=== PATIENT | male | born 1955 | race Caucasian/White ===

== ENCOUNTER 2016-12-14 09:06 | Emergency (ER) | payer SELFPAY ==
[~2016-12-14] VITALS: Ht 177.8 cm; Wt 112.0 kg
[2016-12-14 09:09] VITALS: BP 157/93; PULSE 87; RESP 16; TEMP 97.8; O2SAT 97
--- NOTE | 2016-12-14 09:35 | PD ---
HPI Chief Complaint: Pain: Acute or Chronic Time Seen by Provider: 09:19 Travel History International Travel<30 days: No Contact w/Intl Traveler<30days: No Traveled to known affect area: No History of Present Illness HPI The patient is a 60-year-old male who presents to the emergency department for back pain and bilateral lower extremity pain. The patient is a 7 year history of low back pain, states he exacerbated his back pain while he was in assisted. The patient states he fell, had x-rays of the back in the pelvis but there is no acute fractures. The back pain is located along the lower aspect the back, mostly on the right side, worse with standing and movement. He denies any radiation of the pain into the lower extremities and denies any urinary or fecal incontinence. The patient states he was evaluated at a clinic in [place] and was referred for outpatient CT and MRI, however, was unable to have the diagnostic tests secondary to not having insurance. He denies any acute changes in his back pain, but does note that has been progressing over the last several years. He also has a history of "bad veins "in the lower legs with previous laser therapy. The pain is worse with prolonged standing and occasional activity, he denies any known history of claudication and does not take any blood thinners. The pain is located in the posterior aspect of the legs, noted with mild swelling with prolonged standing and is alleviated at rest. Symptoms are moderate without any acute exacerbating factors. PFSH Past Medical History Narrative Medical Chronic back pain, anxiety, depression, hypertension Past Surgical History Narrative Surgical Laser vein therapy Social History Tobacco Use: Yes Allergies-Medications (Allergen,Severity, Reaction): Coded Allergies: HMG-CoA Reductase Inhibitors (Verified Allergy, Intermediate, Joint Pain, 12/14/16) Reported Meds & Prescriptions Reported Meds & Active Scripts Active Reported Sertraline (Sertraline HCl) 50 Mg Tab 150 Mg PO DAILY Hydroxyzine HCl 25 Mg Tab 25 Mg PO TID PRN Lisinopril 2.5 Mg Tab 2.5 Mg PO DAILY Review of Systems Except as stated in HPI: all other systems reviewed are Neg HENT: No: Headaches Cardiovascular: No: Chest Pain or Discomfort Respiratory: No: Shortness of Breath Gastrointestinal: No: Nausea, Vomiting, Abdominal Pain Genitourinary: No: Urgency, Frequency, Dysuria, Hematuria, Incontinence Musculoskeletal: Positive: Edema, Pain Neurologic: No: Dizziness, Paresthesia, Sensory Disturbance Physical Exam Narrative GENERAL: Awake, alert, nontoxic-appearing 60-year-old male who appears his stated age and is in no acute respiratory distress. SKIN: Focused skin assessment warm/dry. HEAD: Atraumatic. Normocephalic. EYES: Pupils equal and round. No scleral icterus. No injection or drainage. ENT: No nasal bleeding or discharge. Mucous membranes pink and moist. NECK: Trachea midline. No JVD. CARDIOVASCULAR: Regular rate and rhythm. No murmur appreciated. RESPIRATORY: No accessory muscle use. Clear to auscultation. Breath sounds equal bilaterally. GASTROINTESTINAL: Abdomen soft, non-tender, nondistended. Back: No tenderness of lumbar or thoracic vertebrae. No tenderness of the sacroiliac. Mild discomfort with rotation and extension of the back. MUSCULOSKELETAL: No obvious deformities. No clubbing. No cyanosis. No edema. Calves are soft bilaterally. Some superficial varicosities noted. Positive dorsalis pedal pulse and posterior tibialis pulses via Doppler. No edema noted. Full range of motion. NEUROLOGICAL: Awake and alert. No obvious cranial nerve deficits. Motor grossly within normal limits. Normal speech. Sensation is intact to lower cavities bilaterally to soft touch. PSYCHIATRIC: Appropriate mood and affect; insight and judgment normal. Data Data Last Documented VS Vital Signs Date Time Temp Pulse Resp B/P Pulse Ox O2 Delivery O2 Flow Rate FiO2 12/14/16 09:09 97.8 87 16 157/93 97 Orders Spine, Lumbar - Ltd (Ap & Lat) (12/14/16 ) Ibuprofen (Motrin) (12/14/16 09:45) [facility] Medical Decision Making Medical Screen Exam Complete: Yes Emergency Medical Condition: Yes Medical Record Reviewed: Yes Interpretation(s) Last Impressions Lumbar Spine X-Ray 12/14/16 0000 Signed Impressions: Service Date/Time: Wednesday, December 14, 2016 09:54 - CONCLUSION: Mild degenerative changes. Benito Stovall MD FACR Differential Diagnosis Differential diagnosis includes superficial varicosities, claudication, PVD, PAD , chronic back pain, herniated disc, deconditioning, fracture, sprain, strain. Narrative Course The patient's neurovascular examination is unremarkable. I do not believe the patient's pain is secondary to claudication, he has bilateral posterior tibialis and dorsalis pedal pulses via Doppler. There is no significant edema noted, he does have some superficial varicosities. X-ray lumbar spine was ordered and the patient was administered ibuprofen 400 mg orally. X-ray reveals degenerative changes, no acute fracture. Patient has no red flags such as bilateral radiculopathy, history of cancer, or urinary incontinence. The patient will be referred to the outpatient facility clinic. He will be prescribed ibuprofen and Ultram for pain. He is advised to return if symptoms worsen or progress. Diagnosis Primary Impression: Back pain Qualified Code: M54.5 - Chronic right-sided low back pain without sciatica Additional Impression: Bilateral leg pain Referrals: [facility] as needed Patient Instructions: General Instructions Additional Instructions: Medications as directed. Follow-up with his health, you may benefit from outpatient physical therapy. Return if symptoms worsen or progress. Med/Other Pt SpecificInfo: Prescription(s) given Scripts Tramadol 50 Mg Tab50 Mg PO Q6H PRN (PAIN) #12 TAB Ref 0 Prov:Zechariah Swenosn MD 12/14/16 Ibuprofen 400 Mg Bra278 Mg PO Q6H PRN (PAIN SCALE 1 TO 10) #20 TAB Ref 0 Prov:Zechariah Swenson MD 12/14/16 Disposition: 01 DISCHARGE HOME Condition: Stable Zechariah Swenson MD Dec 14, 2016 09:35
[2016-12-14] MEDS ORDERED: SERT-132 PO (09:36)
[2016-12-14] MEDS ORDERED: HYDR-3133 PO (09:36)
[2016-12-14] MEDS ORDERED: LISI2.5T3 PO (09:36)
[2016-12-14] MEDS ORDERED: IBUPROFEN 400 MG TAB PO ONE (09:45)
--- NOTE | 2016-12-14 10:04 | RADRPT ---
EXAM DATE/TIME: 12/14/2016 09:54 [facility] COMPARISON: No previous studies available for comparison. INDICATIONS : Lower back pain after helping move boxes. MEDICAL HISTORY : Hypertension. SURGICAL HISTORY : Hernia repair. ENCOUNTER: Initial ACUITY: 2 weeks PAIN SCORE: 8/10 LOCATION: Lower back radiating upwards. FINDINGS: There are degenerative changes in the lumbar spine probably anterior osteophytes. There is minimal l oss of disc space height at L5-S1. Mild degenerative changes are present facets. CONCLUSION: Mild degenerative changes. Benito Stovall MD FACR on December 14, 2016 at 10:01 Board Certified Radiologist. This report was verified electronically.
[2016-12-14] MEDS ORDERED: IBUP400T20 PO (10:55)
[2016-12-14] MEDS ORDERED: TRAM50TA PO (10:55)
== END 2016-12-14 11:24 | disposition home or self-care (01) ==
LOC: NEPD 09:06
DX: M54.5 Low back pain (principal); M79.604 Pain in right leg; M79.605 Pain in left leg; I10 Essential (primary) hypertension; Z72.0 Tobacco use
CPT/HCPCS: 72100; 99283

== ENCOUNTER 2016-12-18 16:11 | Emergency (ER) | payer SELFPAY ==
[~2016-12-18] VITALS: Ht 177.8 cm; Wt 110.0 kg
[~2016-12-18 16:11] MED LIST: HYDR-3133 PO; IBUP400T20 PO; LISI2.5T3 PO; SERT-132 PO; TRAM50TA PO
[2016-12-18 16:16] VITALS: BP 162/82; PULSE 90; RESP 15; TEMP 98.2; O2SAT 97
--- NOTE | 2016-12-18 17:57 | PD ---
HPI Chief Complaint: Psychiatric Symptoms Time Seen by Provider: 17:55 Travel History International Travel<30 days: No Contact w/Intl Traveler<30days: No Traveled to known affect area: No History of Present Illness HPI This report is in ERROR Please disregard this report and all prior copies ! This report is in ERROR Please disregard this report and all prior copies ! This report is in ERROR Please disregard this report and all prior copies ! PFSH Past Medical History Anxiety: Yes Diminished Hearing: No Hypertension: Yes Musculoskeletal: Yes (fall with injury 2012, bilat hip pain, chronic lower back pain. ) Past Surgical History Abdominal Surgery: Yes ( double hernia repair as ) Eye Surgery: Yes (cataract and lens replacement 2011) Social History Alcohol Use: Yes (rarely) Tobacco Use: Yes Allergies-Medications (Allergen,Severity, Reaction): Coded Allergies: HMG-CoA Reductase Inhibitors (Verified Allergy, Intermediate, Joint Pain, 12/14/16) Reported Meds & Prescriptions Reported Meds & Active Scripts Active Tramadol (Tramadol HCl) 50 Mg Tab 50 Mg PO Q6H PRN Ibuprofen 400 Mg Tab 400 Mg PO Q6H PRN Reported Sertraline (Sertraline HCl) 50 Mg Tab 150 Mg PO DAILY Hydroxyzine HCl 25 Mg Tab 25 Mg PO TID PRN Lisinopril 2.5 Mg Tab 2.5 Mg PO DAILY Review of Systems Except as stated in HPI: all other systems reviewed are Neg Physical Exam Narrative This report is in ERROR Please disregard this report and all prior copies ! This report is in ERROR Please disregard this report and all prior copies ! This report is in ERROR Please disregard this report and all prior copies ! Data Data Last Documented VS Vital Signs Date Time Temp Pulse Resp B/P Pulse Ox O2 Delivery O2 Flow Rate FiO2 12/18/16 16:16 98.2 90 15 162/82 97 VS reviewed MDM Medical Decision Making Medical Screen Exam Complete: Yes Emergency Medical Condition: Yes Differential Diagnosis This report is in ERROR Please disregard this report and all prior copies ! This report is in ERROR Please disregard this report and all prior copies ! This report is in ERROR Please disregard this report and all prior copies ! Narrative Course This report is in ERROR Please disregard this report and all prior copies ! This report is in ERROR Please disregard this report and all prior copies ! This report is in ERROR Please disregard this report and all prior copies ! Diagnosis Primary Impression: Encounter for medical screening examination Referrals: [facility] 1 day Disposition: 01 DISCHARGE HOME Condition: Stable Campbell Armstrong MD Dec 18, 2016 17:57
--- NOTE | 2016-12-18 18:09 | PD ---
HPI Chief Complaint: Psychiatric Symptoms Time Seen by Provider: 17:55 Travel History International Travel<30 days: No Contact w/Intl Traveler<30days: No Traveled to known affect area: No History of Present Illness HPI The patient's 61 years old. He arrives her voluntary with a few complaints. He reports various grievances including difficulty finding a hard time is a registered sex offender, difficulty finding work, a pending eviction from his house, difficulty getting follow-up medical care, multiple negatively predisposed acquaintances and other challenges for him personally. He denies suicidal and homicidal ideation. He goes on to explain that he is somewhat unsatisfied with group therapy arranged by [facility] facility would like an individual therapist. He reiterates no intention of harm to self or others. He denies drug or alcohol abuse. He offers no specific medical complaint. History Social History Alcohol Use: Yes (rarely) Tobacco Use: Yes Allergies-Medications (Allergen,Severity, Reaction): Coded Allergies: HMG-CoA Reductase Inhibitors (Verified Allergy, Intermediate, Joint Pain, 12/14/16) Reported Meds & Prescriptions Reported Meds & Active Scripts Active Tramadol (Tramadol HCl) 50 Mg Tab 50 Mg PO Q6H PRN Ibuprofen 400 Mg Tab 400 Mg PO Q6H PRN Reported Sertraline (Sertraline HCl) 50 Mg Tab 150 Mg PO DAILY Hydroxyzine HCl 25 Mg Tab 25 Mg PO TID PRN Lisinopril 2.5 Mg Tab 2.5 Mg PO DAILY Review of Systems Except as stated in HPI: all other systems reviewed are Neg Physical Exam Narrative GENERAL: 60 yo M, WNWD, NAD SKIN: Warm and dry. HEAD: Atraumatic. Normocephalic. EYES: Pupils equal and round. No scleral icterus. No injection or drainage. ENT: No nasal bleeding or discharge. Mucous membranes pink and moist. NECK: Trachea midline. No JVD. CARDIOVASCULAR: Regular rate and rhythm. RESPIRATORY: No accessory muscle use. Clear to auscultation. Breath sounds equal bilaterally. GASTROINTESTINAL: Abdomen soft, non-tender, nondistended. Hepatic and splenic margins not palpable. MUSCULOSKELETAL: Extremities without clubbing, cyanosis, or edema. No obvious deformities. NEUROLOGICAL: Awake and alert. No obvious cranial nerve deficits. Motor grossly within normal limits. Five out of 5 muscle strength in the arms and legs. Normal speech. PSYCHIATRIC: Appropriate mood and affect; insight and judgment normal. Data Data Last Documented VS Vital Signs Date Time Temp Pulse Resp B/P Pulse Ox O2 Delivery O2 Flow Rate FiO2 12/18/16 16:16 98.2 90 15 162/82 97 VS reviewed [facility] Medical Screen Exam Complete: Yes Emergency Medical Condition: No Narrative Course A medical screening exam was performed: At the time of evaluation the presenting medical condition was determined not to be of an emergent nature. The patient was given the option of receiving additional care, but declined. Patient was given options for additional community resources from which to obtain care. The Patient Has Been advised to seek medical attention for their presenting complaint. The patient has been advised to return to the ER at any time if an emergent condition develops. Primary Impression: Encounter for medical screening examination Referrals: [facility] 1 day Disposition: 01 DISCHARGE HOME Condition: Stable Campbell Armstrong MD Dec 18, 2016 18:09
== END 2016-12-18 18:24 | disposition left against medical advice (07) ==
LOC: NEPD 16:11
DX: R68.89 Other general symptoms and signs (principal)
CPT/HCPCS: 99281